=== PATIENT | male | born 1975 | race Caucasian/White ===

== ENCOUNTER 2018-03-07 08:59 | Day surgery (SDC) | payer BC ==
[~2018-03-07] VITALS: Ht 162.6 cm; Wt 63.0 kg
[2018-03-07 09:15] VITALS: BP 138/97
[2018-03-07] MEDS ORDERED: LACTATED RINGERS 1,000 ML IV SCH (09:15)
[2018-03-07] MEDS ORDERED: BUPIVACAINE/PF-EPI 0.5% 1:200K ONE (09:20)
[2018-03-07] MEDS ORDERED: LIDOCAINE 1%-EPI 1:100K, 30ML ONE (09:20)
[2018-03-07] MEDS ORDERED: PLEASE ENTER ALLERGIES MC SCH (09:30)
[2018-03-07] MEDS ORDERED: PLEASE ENTER HEIGHT AND WEIGHT MC SCH (09:30)
[2018-03-07] MEDS ORDERED: NO MEDS (09:30)
[2018-03-07] MEDS ORDERED: MIDAZOLAM 1 MG/ML, 2ML ONE (09:32)
[2018-03-07] MEDS ORDERED: OXYcodone 5 MG/5 ML ORAL.SOL UDC PO PRN (10:00)
[2018-03-07] MEDS ORDERED: ALBUTEROL SULFATE 2.5 MG/3 ML NPPB PRN (10:00)
[2018-03-07] MEDS ORDERED: hydrALAzine 20 MG/ML, 1ML IV PRN (10:00)
[2018-03-07] MEDS ORDERED: PROMETHAZINE 25 MG/ML, 1ML IV PRN (10:00)
[2018-03-07] MEDS ORDERED: ONDANSETRON 2MG/ML, 2ML IV PRN (10:00)
[2018-03-07] MEDS ORDERED: EPHEDRINE 50 MG/ML, 1ML IVPush PRN (10:00)
[2018-03-07] MEDS ORDERED: ACETAMINOPHEN 325 MG TABLET PO PRN (10:00)
[2018-03-07] MEDS ORDERED: METOPROLOL 1 MG/ML, 5ML IV PRN (10:00)
[2018-03-07] MEDS ORDERED: MEPERIDINE/PF 25MG/0.5ML IVPush PRN (10:00)
[2018-03-07] MEDS ORDERED: LABETALOL 5MG/ML, 20ML IV PRN (10:00)
[2018-03-07] MEDS ORDERED: CEFAZOLIN 1,000 MG ONE (10:30)
[2018-03-07] MEDS ORDERED: KETOROLAC 30 MG/1 ML ONE (10:30)
[2018-03-07] MEDS ORDERED: ONDANSETRON 2MG/ML, 2ML ONE (10:30)
[2018-03-07] MEDS ORDERED: DEXAMETHASONE 4 MG/ML, 1ML ONE (10:30)
[2018-03-07] MEDS ORDERED: PROPOFOL 10 MG/ML, 20ML ONE (10:30)
[2018-03-07] MEDS ORDERED: ACETAMINOPHEN 650 MG/20.3 ML UDC ONE (10:45)
[2018-03-07] MEDS ORDERED: FENTANYL PF 100 MCG/2ML ONE (10:45)
[2018-03-07] MEDS ORDERED: OXYcodone 5 MG/5 ML ORAL.SOL UDC ONE (10:46)
[2018-03-07] MEDS: FENTANYL PF 100 MCG/2ML IV PRN ×3 (10:49→11:03)
== END 2018-03-07 14:15 | disposition home or self-care (01) ==
LOC: OUT 08:59
PROVIDERS: ATTEND Orthopaedic Surgery
DX: S83.231A Complex tear of medial meniscus, current injury, right knee, initial encounter (principal); M94.261 Chondromalacia, right knee; F17.210 Nicotine dependence, cigarettes, uncomplicated; Z72.89 Other problems related to lifestyle; X58.XXXA Exposure to other specified factors, initial encounter; Y93.89 Activity, other specified; Y92.89 Other specified places as the place of occurrence of the external cause; Y99.8 Other external cause status
CPT/HCPCS: 29881; J0690; J1100; J1885; J2250; J2405; J2704; J3010; J3490; J7120